=== PATIENT | male | born 1970 | race Caucasian/White ===

== ENCOUNTER 2019-10-25 15:18 | Emergency (ER) | payer MEDICARE, OTHER ==
[~2019-10-25] VITALS: Ht 188 cm; Wt 90.2 kg
[~2019-10-25 15:18] MED LIST: ARIP30TA4 PO; DIVA500T2 PO; OLAN20TA3 PO; OXCA600T3 PO; PROP10TA16 PO
[2019-10-25 15:31] VITALS: BP 129/80
--- NOTE | 2019-10-25 15:41 | NUR ---
PT HERE WITH C/O DENTAL PAIN.
[2019-10-25] MEDS ORDERED: HYDROcodone/APAP 5/325 TABLET ONE (15:49)
--- NOTE | 2019-10-25 15:53 | NUR ---
PT MEDICATED PER ORDERS.
[2019-10-25] MEDS ORDERED: HYDROcodone/APAP 5/325 TABLET PO ONE (16:00)
--- NOTE | 2019-10-25 16:04 | NUR ---
Patient/Caregiver given discharge instructions and they have confirmed that they understand the instructions. Patient ambulatory with steady gait.
== END 2019-10-25 19:02 | disposition home or self-care (01) ==
LOC: ED 16:00
DX: K02.9 Dental caries, unspecified (principal); K08.89 Other specified disorders of teeth and supporting structures; R51 Headache; F17.200 Nicotine dependence, unspecified, uncomplicated; Z72.9 Problem related to lifestyle, unspecified
CPT/HCPCS: 99283

== ENCOUNTER 2020-05-22 20:26 | Emergency (ER) | payer MEDICARE, MEDICAID ==
[~2020-05-22] VITALS: Ht 185.4 cm; Wt 84.0 kg
--- NOTE | 2020-05-22 20:50 | NUR ---
Break RN: assumed care of pt on behalf of primary RN for connie hi. pt presents from triage c/o posterior HOLM x3 days. pt reports that he has intermittent dizziness an blured vision, but no LOC. no loss of vision. pt is alert and ambulatory. CONNOLLY and speaking full sentences without diffiulty. no facil droop noted. reports that hehas nausea but no vomiting at this time. no family at bedside Dr. Tobin at bedside for eval
[2020-05-22] MEDS ORDERED: CYCLOBENZAPRINE 10 MG TABLET PO ONE (21:00)
[2020-05-22] MEDS ORDERED: KETOROLAC 30 MG/1 ML IM ONE (21:00)
[2020-05-22] MEDS ORDERED: METOCLOPRAMIDE 5 MG/ML, 2ML IM ONE (21:00)
--- NOTE | 2020-05-22 21:02 | NUR ---
report to [place] GREEN
--- NOTE | 2020-05-22 21:03 | NUR ---
Patient to CT
[2020-05-22] MEDS ORDERED: CYCLOBENZAPRINE 10 MG TABLET ONE (21:24)
[2020-05-22] MEDS ORDERED: KETOROLAC 60 MG/2 ML ONE (21:24)
[2020-05-22] MEDS ORDERED: METOCLOPRAMIDE 5 MG/ML, 2ML ONE (21:24)
[2020-05-22 21:35] VITALS: BP 111/72
--- NOTE | 2020-05-22 21:59 | NUR ---
Patient given discharge instructions and they have confirmed that they understand the instructions. Patient ambulatory with steady gait.
== END 2020-05-22 22:01 | disposition home or self-care (01) ==
LOC: ED 21:50
DX: G44.209 Tension-type headache, unspecified, not intractable (principal); F17.210 Nicotine dependence, cigarettes, uncomplicated
CPT/HCPCS: 70450; 96372; 99284; 99406; J1885; J2765

== ENCOUNTER 2020-08-09 01:23 | Emergency (ER) | payer MEDICARE, MEDICAID ==
[~2020-08-09] VITALS: Ht 188 cm; Wt 90.0 kg
[2020-08-09 01:35] VITALS: BP 138/79
== END 2020-08-09 02:27 | disposition home or self-care (01) ==
LOC: ED 01:45
DX: K04.7 Periapical abscess without sinus (principal); F17.210 Nicotine dependence, cigarettes, uncomplicated; G89.29 Other chronic pain
CPT/HCPCS: 99283; 99406

== ENCOUNTER 2020-09-16 07:59 | Emergency (ER) | payer MEDICARE, MEDICAID ==
[~2020-09-16] VITALS: Ht 188 cm; Wt 96.4 kg
[2020-09-16] MEDS ORDERED: FAMOTIDINE 20 MG/2 ML IV ONE (08:30)
[2020-09-16] MEDS ORDERED: MAALOX/HYOSCYAMINE/LIDOCAINE 45 ML BTL PO ONE (08:30)
[2020-09-16] MEDS ORDERED: SODIUM CHLORIDE FLUSH 10ML SYR IVF ONE (08:30)
[2020-09-16] MEDS ORDERED: ONDANSETRON 2MG/ML, 2ML IVPush ONE (08:30)
[2020-09-16] MEDS ORDERED: FAMOTIDINE 20 MG/2 ML ONE (08:33)
[2020-09-16] MEDS ORDERED: ONDANSETRON 2MG/ML, 2ML ONE (08:33)
[2020-09-16] MEDS ORDERED: MAALOX/HYOSCYAMINE/LIDOCAINE 45 ML BTL ONE (08:33)
--- NOTE | 2020-09-16 08:52 | NUR ---
RUQ, EPIGASTIRIC ABD PAIN X 4 DAYS N/V X 2 DAYS HX: [facility] 2014. PT IN BED IN GOWN WITH CONT SPO2 AND BP Q 30 MIN, SIDE RAILS UP X2 CALL LIGHT IN REACH. WENT OVER A PLAN OF CARE FRO0M ORDER LIST. AGREES TO PLAN OF CARE OF CARE
[2020-09-16 09:01] LABS: ALANINE AMINOTRANSFERASE 60 U/L (12-78); ALBUMIN 3.5 g/dL (3.4-5.0); CALCIUM 8.2 mg/dL (8.5-10.1); CREATININE 0.98 mg/dL (0.7-1.3)
[2020-09-16 09:03] LABS: BASOPHILS % (AUTO) 1 % (0-1); EOSINOPHILS % (AUTO) 3 % (1-7); LYMPHOCYTES % (AUTO) 30 % (22-44); MEAN CORPUSCULAR HEMOGLOBIN 32.2 pg (27.5-34.5); MEAN CORPUSCULAR HGB CONC 35.4 g/dL (33.2-36.2); MEAN PLATELET VOLUME 10.5 fL (7.4-10.4); MONOCYTES % (AUTO) 11 % (2-9); NEUTROPHILS % (AUTO) 55 % (42-75); PLATELET COUNT 150 x10^3/uL (130-400); RED BLOOD COUNT 4.66 x10^6/uL (4.38-5.82); RED CELL DISTRIBUTION WIDTH 12.5 % (9.4-14.8)
[2020-09-16 09:06] LABS: ALKALINE PHOSPHATASE 91 U/L (45-117); ANION GAP 2 mmol/L (5-15); BILIRUBIN,TOTAL 0.5 mg/dL (0.2-1.0); CHLORIDE 113 mmol/L (98-107); TOTAL PROTEIN 6.4 g/dL (6.4-8.2); TROPONIN I < 0.015 ng/mL (0.000-0.045)
[2020-09-16 09:07] LABS: MD NO
[2020-09-16 11:13] VITALS: BP 124/74
== END 2020-09-16 11:16 | disposition home or self-care (01) ==
LOC: ED 09:03
DX: K29.00 Acute gastritis without bleeding (principal); R07.89 Other chest pain; R10.13 Epigastric pain; R11.2 Nausea with vomiting, unspecified; F17.210 Nicotine dependence, cigarettes, uncomplicated; Z90.49 Acquired absence of other specified parts of digestive tract
CPT/HCPCS: 36415; 71045; 80053; 83690; 84484; 85025; 93005; 96374; 96375; 99285; J2405

== ENCOUNTER 2021-05-13 12:39 | Emergency (ER) | payer MEDICARE, MEDICAID ==
[~2021-05-13] VITALS: Ht 188 cm; Wt 95.8 kg
[2021-05-13 12:59] VITALS: BP 143/89
--- NOTE | 2021-05-13 13:31 | NUR ---
social research assistant note: Pt to room from lobby.
[2021-05-13 13:36] LABS: BASOPHILS % (AUTO) 1 % (0-1); EOSINOPHILS % (AUTO) 3 % (1-7); LYMPHOCYTES % (AUTO) 29 % (22-44); MEAN CORPUSCULAR HEMOGLOBIN 32.1 pg (27.5-34.5); MEAN CORPUSCULAR HGB CONC 35.5 g/dL (33.2-36.2); MEAN PLATELET VOLUME 10.6 fL (7.4-10.4); MONOCYTES % (AUTO) 8 % (2-9); NEUTROPHILS % (AUTO) 60 % (42-75); PLATELET COUNT 177 x10^3/uL (130-400); RED BLOOD COUNT 4.91 x10^6/uL (4.38-5.82)
[2021-05-13 13:40] LABS: ALANINE AMINOTRANSFERASE 45 U/L (12-78); ANION GAP 5 mmol/L (5-15); CALCIUM 9.4 mg/dL (8.5-10.1); CHLORIDE 108 mmol/L (98-107); CREATININE 0.98 mg/dL (0.7-1.3)
[2021-05-13 13:42] LABS: ALKALINE PHOSPHATASE 111 U/L (45-117); BILIRUBIN,TOTAL 0.9 mg/dL (0.2-1.0); TOTAL PROTEIN 7.3 g/dL (6.4-8.2)
--- NOTE | 2021-05-13 14:04 | NUR ---
[employer] HUM[employer] PERFORMANCE TECHNOLOGIST NOTIFIED. MD AT BEDSIDE NOW
--- NOTE | 2021-05-13 14:17 | NUR ---
KAYLEEN JACOBO AT BEDSIDE
[2021-05-13] MEDS ORDERED: QUETIAPINE 25MG TABLET ONE (14:47)
[2021-05-13] MEDS ORDERED: QUETIAPINE 25MG TABLET PO ONE (15:00)
--- NOTE | 2021-05-13 15:32 | NUR ---
KAYLEEN MADE AWARE OF REEVAL. PT STATES HE IS FEELING BETTER.
--- NOTE | 2021-05-13 15:40 | NUR ---
KAYLEEN AT BEDSIDE NOW
[2021-05-13] MEDS ORDERED: QUET25TA5 PO (15:53)
== END 2021-05-13 16:20 | disposition home or self-care (01) ==
LOC: ED 16:14
DX: F31.10 Bipolar disorder, current episode manic without psychotic features, unspecified (principal)
CPT/HCPCS: 36415; 80053; 85025; 99283